=== PATIENT | female | born 1975 | race Caucasian/White ===

== ENCOUNTER 2016-06-06 20:54 | Emergency (ER) | payer OTHER ==
--- NOTE | 2016-06-06 23:19 | ED GI/GU/ABDOMINAL COMPLAINT ---
History of Present Illness General Chief Complaint: Female Urogenital Problems Stated Complaint: "I THINK I LOST A TAMPON SINCE WEDNESDAY" Source: patient Exam Limitations: no limitations Vital Signs & Intake/Output Vital Signs & Intake/Output Vital Signs Date Time Temp Pulse Resp B/P B/P Pulse O2 O2 Flow FiO2 Mean Ox Delivery Rate 06/06 2343 98.4 68 18 128/68 96 Room Air 06/065 98.9 73 16 150/82 99 Room Air Allergies Coded Allergies: acetaminophen (From TYLENOL) (Severe, UNCONSCIOUS 06/06/16) Sulfa (Sulfonamide Antibiotics) (Intermediate, HIVES 06/06/16) Uncoded Allergies: PCN (Intermediate, HIVES 06/06/16) Triage Note: TRIAGE; PT STATES SHE THINKS SHE LEFT A TAMPON IN SINCE WEDNESDAY. DENIES ANY ABD/PELVIC PAIN, STATES SHE HAS VAGINAL ODOR. DENIES ANY URINARY S/S. Triage Nurses Notes Reviewed? yes ? N Is pt currently ? No Onset: Abrupt Duration: day(s): (5) Timing: recent history Location: vaginal Radiation: no radiation No Modifying Factors: none Associated Symptoms: pressure, discharge HPI: This is a 41-year-old female who presents here for chief complaint of having a tampon stuck since wednesday. She states that she tried to remove the pack can find it. Today she noticed a very foul odor. The patient denies any fever, chills, abdominal pain. She had a brief episode of nausea this morning that resolved after eating. Past History Travel History Traveled to [place] past 21 day No Medical History Any Pertinent Medical History? see below for history Endocrine: hypothyroidism Surgical History Surgical History: non-contributory Psychosocial History What is your primary language Portuguese Tobacco Use: Never used Family History Hx Contributory? No Review of Systems Review of Systems Constitutional: Denies: chills, fever. EENTM: Reports: no symptoms. Respiratory: Reports: no symptoms. Cardiovascular: Reports: no symptoms. GI: Denies: abdominal pain, nausea, vomiting. Genitourinary: Reports: no symptoms. Musculoskeletal: Reports: no symptoms. Skin: Denies: rash. Neurological/Psychological: Reports: no symptoms. Hematologic/Endocrine: Denies: bruising, bleeding. Immunologic/Allergic: Reports: no symptoms. All Other Systems: Reviewed and Negative Physical Exam Physical Exam General Appearance: well developed/nourished, alert, awake, anxious Head: atraumatic, normal appearance Eyes: Bilateral: normal appearance, PERRL, EOMI. Ears, Nose, Throat, Mouth: hearing grossly normal, moist mucous membrane Neck: normal inspection, supple, full range of motion Respiratory: normal breath sounds, chest non-tender, no respiratory distress Cardiovascular: regular rate/rhythm Peripheral Pulses: 2+ radial (R), 2+ radial (L) Gastrointestinal: normal bowel sounds, soft Pelvic: tampon visualized with speculum exam and extracted with forceps Extremities: normal range of motion Neurologic/Psych: no motor/sensory deficits, awake, alert, oriented x 3 Skin: intact, normal color, warm/dry Core Measures ACS in differential dx? No Severe Sepsis Present: No Septic Shock Present: No Progress Differential Diagnosis: RETAINED FOREIGN BODY Plan of Care: RETAINED FOREIGN BODY REMOVED NO SIGNS/SYMPTOMS OF SEPSIS Initial ED EKG: none Departure Departure Time of Disposition: 2342 Disposition: HOME OR SELF CARE Condition: Stable Clinical Impression Primary Impression: Retained tampon Referrals: KRISTIAN BALL (PCP/Family) Additional Instructions: Follow-up with her doctor as needed. Return for any fever, chills, nausea, vomiting or generally not feeling well. Departure Forms: Customer Survey General Discharge Information
[2016-06-06 23:43] VITALS: BP 128/68
== END 2016-06-06 23:55 ==
LOC: ERH 20:54
DX: Z18.89 Other specified retained foreign body fragments (principal)